=== PATIENT | female | born 1990 | race Caucasian/White ===

== ENCOUNTER 2020-03-16 16:02 | Emergency (ER) | payer MEDICAID, SELFPAY ==
[~2020-03-16] VITALS: Ht 167.6 cm; Wt 65.8 kg
[2020-03-16 17:11] VITALS: BP_SYST 142
--- NOTE | 2020-03-16 17:17 | NUR ---
Patient to ER bed Tent 1 to gown for evaluation. Side rails up.
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
--- NOTE | 2020-03-16 18:27 | NUR ---
Dr De La Fuente evaluating patient in the tent
--- NOTE | 2020-03-16 18:30 | NUR ---
Rehab physical form filled by Dr De La Fuente and placed in the chart
[2020-03-16] MEDS ORDERED: KETOROLAC TROMETHAMINE 30 MG VIAL ONE (18:44)
--- NOTE | 2020-03-16 18:54 | NUR ---
Pt off the tent for radiology
[2020-03-16] MEDS: KETOROLAC TROMETHAMINE 30 MG VIAL IM ONE (19:16)
[2020-03-16 20:55] VITALS: BP_SYST 140
--- NOTE | 2020-03-16 20:55 | NUR ---
Patient given written and verbal discharge instructions and verbalizes understanding. ER MD discussed with patient the results and treatment provided. Patient in stable condition. ID arm band removed. Patient educated on pain management and to follow up with PMD. Opportunity for questions provided and answered. Medication side effect fact sheet provided.
== END 2020-03-16 20:55 | disposition home or self-care (01) ==
LOC: SED 16:02
DX: M54.2 Cervicalgia (principal)
CPT/HCPCS: 72125; 76376; 81025; 96372; 99284; J1885